=== PATIENT | male | born 1990 | race Caucasian/White ===

== ENCOUNTER 2024-08-03 13:24 | Emergency (ER) | payer OTHER, SELFPAY ==
[2024-08-03 13:34] VITALS: BP 139/103
--- NOTE | 2024-08-03 14:13 | ED.GENMED ---
History of Present Illness
General
Chief Complaint: Skin Problem
Source: patient
Exam Limitations: none
Time Seen by Provider: 08/03/24 14:03
Nursing documentation reviewed up to this point in time: agreed with
History of Present Illness
History of Present Illness:
34-year-old male with no significant chronic medical issues presents for evaluation of cat bite. Patient was bitten or scratched (he is not exactly sure) on his right hand 2 days ago. He says it was a feral cat that runs around his aunt's
neighborhood. He says that he had some puffiness and redness initially , went to urgent care yesterday and was started on azithromycin. He says redness and swelling did not seem to be improving and so he came to have it reassessed. No fever or
chills or any other issues noted. Not available for observation. Tetanus was updated at urgent care.
Past History
Past History
ED Past Medical History: Psychiatric
ED Past Surgical History: None
Social History
Tobacco: Former smoker
Review of Systems
Review of Systems
All Other Systems: ROS reviewed and negative except as documented in HPI and ROS
Skin: Reports other (Cat bite)
Phy Exam
Physical Exam
Physical Exam:
General: Awake, alert; no acute distress
Head: Normocephalic, atraumatic
Eyes: Conjunctiva normal
Throat: Airway intact, handling secretions
Neck: Trachea midline
Lungs: Breathing comfortably no distress
Heart: Regular rate
Neuro: No gross deficit
Skin: See picture below�patient has multiple small breaks in the skin on the dorsal aspect at the base of the thumb�most of which appear relatively small more consistent with a puncture jose rather than long scratch although 1 slightly more
elongated scratch noted; there is some slight erythema of the area and a few streaks of erythema more proximally towards the wrist; there is some slight localized swelling and minor tenderness; he does allow for passive range of motion of the thumb
without pain, no tenderness along the flexor or extensor tendon/thenar eminence
Extremities: Findings on hand as above, warm and well-perfused with good pulses
Scores
Heart Failure Risk
Heart Failure Risk Score: Not Applicable
Heart Score for Chest Pain Patients
STEMI patient?: Not applicable
Withdrawal Assessment of Alcohol
Withdrawal Assessment Completed?: Not applicable
Course
Vital Signs
Initial and Last Documented VS:
Initial Vital Signs
Temp Pulse Resp BP Pulse Ox
37.3 C 93 16 139/103 97
08/03/24 13:34 08/03/24 13:34 08/03/24 13:34 08/03/24 13:34 08/03/24 13:34
Last Documented Vital Signs
Temp Pulse Resp BP Pulse Ox
37.3 C 93 16 139/103 97
08/03/24 13:34 08/03/24 13:34 08/03/24 13:34 08/03/24 13:34 08/03/24 13:34
MDM/Problems Addressed
Differential Diagnosis Includes:
Cellulitis
MDM/Problems Addressed:
34-year-old male presents for evaluation of an infected cat bite/scratch. Tetanus was updated in urgent care yesterday. He was started on azithromycin but not improved after 24 hours and so he came to the ER. He does appear to have a minor
infection of what I suspect is likely a cat bite. Advised to continue azithromycin to complete course but this is an adequate to cover this infection�will start on Augmentin as well. He has no signs of tenosynovitis at this point but I did inform
over the possibility of such an infection and that he should watch this area closely; we spoke about detailed return precautions and follow-up plan. He did receive a tetanus shot at urgent care yesterday. I spoke to the patient about rabies
prophylaxis�unfortunately cat is feral and not available for observation. Will provide postexposure prophylaxis for rabies. Stable for discharge.
*Pulse Oximetry
Patient hypoxic: no
*Critical Care Note
Total Time (30-74mins, 75-104mins- exclusive of procedures): Not Applicable
Data Reviewed
Source: patient
ED Attending Note
-
Portions of this chart may have been created with voice recognition software.� Occasional wrong word or��sound alike� substitutions may have occurred due to the inherent limitations of voice recognition software.
Discharge Plan
Departure
Patient Disposition: Home (Routine Discharge)
Date of Disposition: 08/03/24
Time of Disposition: 14:20
Patient with high blood pressure during this ER visit?: Yes
Discharge Problem:
Infected cat bite
Instructions: Cellulitis (Skin Infection), Adult (DC), Animal Bites ED
Prescriptions:
New
amoxicillin-pot clavulanate 875-125 mg tablet
1 tab PO BID Qty: 20 0RF
No Action
sertraline 50 MG tablet
50 mg PO HS
prednisone 20 MG tablet
20 mg PO BID Qty: 10 0RF
Referrals:
Aman Murphy MD [Family Provider] -
Stand Alone Forms: Rabies Vaccine Post Exp Dosing
Activity Restrictions/Additional Instructions:
Monitor the area on your hands�if you notice that it is getting worse or if it is not bending better after few days of antibiotics you should return to the emergency room for reassessment. You must return regardless for completion of your rabies
postexposure vaccination series�please see the attached sheet for timing for return but next booster will be due this Thursday. We will reassess the wound at that time.
Thank you for visiting the Emergency Department at [facility].
1. Please schedule a follow up appointment as directed. Call first thing tomorrow morning to make an appointment.
2. If indicated, please take your medications as instructed and indicated on discharge paperwork.
3. If any of your symptoms do not improve, or persist, or become more severe within 6-12 hours, please return to the emergency department for further care.
4. Please return to the emergency department if you develop a headache, neck pain/stiffness, fever greater than 100.4F, chest pain, shortness of breath, persistent nausea, vomiting, slurred speech, difficulty walking, numbness/tingling, weakness,
signs of infection or any other symptoms that are worrisome to you.
Please call [phone] if you have any questions.
Interventions
Interventions:
*General Assessment Last Done: 08/03/24 13:41
*ED- Fall Risk Assessment Last Done: 08/03/24 13:41
ED-Skin Assessment Last Done: 08/03/24 13:53
Discharge Date and Time
Print Language: BARBADIAN
[2024-08-03 15:48] VITALS: BP 163/112
[2024-08-03] MEDS: RABAVERT RABIES VACC W-DILUENT 2.5 UNIT IM (15:50)
[2024-08-03] MEDS: AUGMENTIN 875 MG/125 MG 1 TABLET PO (15:50)
[2024-08-03] MEDS: HyperRAB 1724 UNIT IM (15:52)
== END 2024-08-03 16:23 | disposition home or self-care (01) ==
LOC: EMR 13:24
PROVIDERS: EMERGENCY PHYSICIAN Emergency Medicine; FAMILY PHYSICIAN Family Medicine
DX: S61.031A Puncture wound without foreign body of right thumb without damage to nail, initial encounter (principal); W55.01XA Bitten by cat, initial encounter; Z23 Encounter for immunization; Z20.3 Contact with and (suspected) exposure to rabies; Z87.891 Personal history of nicotine dependence
CPT/HCPCS: 99282; 90471; 96372; 90375; 90675